=== PATIENT | female | born 1975 | race Hispanic/Latino ===

== ENCOUNTER → 2021-01-27 | Outpatient (CLI) | payer BC | END | disposition home or self-care (01) | LOC: RAH 15:09 | PROVIDERS: ATTEND Specialist | DX: Z12.31 Encounter for screening mammogram for malignant neoplasm of breast (principal) | CPT/HCPCS: 77067 ==

== ENCOUNTER → 2022-06-30 | Outpatient (CLI) | payer BC | END | disposition home or self-care (01) | LOC: SHCH 14:35 | PROVIDERS: ATTEND Internal Medicine Cardiovascular Disease | DX: I11.9 Hypertensive heart disease without heart failure (principal); J45.909 Unspecified asthma, uncomplicated | CPT/HCPCS: 93306 ==

== ENCOUNTER → 2022-09-22 | Outpatient (CLI) | payer BC | END | disposition home or self-care (01) | LOC: RAH 13:43 | PROVIDERS: ATTEND Obstetrics & Gynecology | DX: Z12.31 Encounter for screening mammogram for malignant neoplasm of breast (principal) | CPT/HCPCS: 77067 ==

== ENCOUNTER → 2022-10-19 | Outpatient (CLI) | payer BC | END | disposition home or self-care (01) | LOC: RAH 10:27 | PROVIDERS: ATTEND Obstetrics & Gynecology | DX: N64.4 Mastodynia (principal); R10.2 Pelvic and perineal pain | CPT/HCPCS: 76830 ==

== ENCOUNTER → 2024-05-11 | Outpatient (CLI) | payer BC ==
[~2024-05-11] MED LIST: ALBU2.5V2 IH; ALBUTEROL IH; BACL10TA PO; BOTOX SQ; DULO40CA2 PO; FLUT1AER IH; LOSA50TA64 PO; ONDA-243 PO; PREG150C47 PO; SPIRIVA IH; TEZE210S SQ; TOPI50CA6 PO; TRAM50TA4 PO
== END | disposition home or self-care (01) ==
LOC: RAH 13:46
PROVIDERS: ATTEND Internal Medicine
DX: R91.8 Other nonspecific abnormal finding of lung field (principal); R06.02 Shortness of breath
CPT/HCPCS: 71250

== ENCOUNTER → 2024-12-27 | Outpatient (CLI) | payer BC ==
[~2024-12-27] MED LIST changes: -TOPI50CA6 PO; +TOPI50CA7 PO
--- NOTE | 2024-12-28 08:56 | HMCSR ---
APPROVED REPORT Left Lower Extremity Venous Study for DVT., Venous Competence. Indications R60.9 Vein Imaging CFV (L): Normal flow, augmentation and compression. No evidence of DVT. 12.4mm 172ms of reflux. SFJ (L): Normal flow, augmentation and compression. No evidence of DVT. FEM (L): Normal flow, augmentation and compression. No evidence of DVT. POP (L): Normal flow, augmentation and compression. No evidence of DVT. DFV (L): Normal flow, augmentation and compression. No evidence of DVT. PTV (L): Normal flow, augmentation and compression. No evidence of DVT. Peroneals (L): Normal flow, augmentation and compression. No evidence of DVT. Technologist Impression Deep Veins of LT.LE appear patent and compressible without thrombus. No Significant deep vein reflux seen. Superficial venous insufficiency seen in the LGSV LGSV junction 5.9mm 2244ms thigh 4.0mm 0.0ms knee 4.7mm 267ms calf 2.8mm 939ms LSSV Prox 2.0mm 0.0ms Mid 3.1mm 233ms Conclusion As above. Conclusion As above.
== END | disposition home or self-care (01) ==
LOC: SHCH 13:43
PROVIDERS: ATTEND Internal Medicine Cardiovascular Disease
DX: I87.2 Venous insufficiency (chronic) (peripheral) (principal); I87.1 Compression of vein; R60.9 Edema, unspecified
CPT/HCPCS: 93971

== ENCOUNTER → 2025-04-24 | Outpatient (CLI) | payer BC | END | disposition home or self-care (01) | LOC: RAH 14:37 | PROVIDERS: ATTEND Obstetrics & Gynecology | DX: Z12.31 Encounter for screening mammogram for malignant neoplasm of breast (principal) | CPT/HCPCS: 77067 ==